=== PATIENT | female | born 1975 | race Asian ===

== ENCOUNTER 2016-12-14 21:04 | Emergency (ER) | payer OTHER ==
[~2016-12-14] VITALS: Ht 154.9 cm; Wt 59.0 kg
[~2016-12-14 21:04] MED LIST: ALBUTEROL SULF8.5 GM IH; ANECREAM30 GM TP; ATARAX,VISTARIL50 MG PO; BUSPAR15 MG PO; BUSPAR5 MG PO; BYSTOLIC5 MG PO; Buspar PO; CATAPRES0.1 MG PO; COLACE100 MG PO; CYMBALTA30 MG PO; DIAZEPAM5 MG PO; ENOXAPARIN80 MG/0.8 SC; Effexor XR PO; FIORICET WI1 CAPSULE PO; FIORICET,ESG1 TABLET PO; FLEXERIL10 MG PO; GABAPENTIN100 MG PO; Glucophage PO; HUMALOG100 UNIT/1 SC; HUMULIN N100 UNITS/ SC; HUMULIN N300 UNIT/3 SC; HYDROXYZINE HCL50 MG PO; Imitrex PO; JANUVIA100 MG PO; LABETALOL HCL200 MG PO; LEVEMIR FL100 UNITS/ SC; LEVEMIR100 UNIT/2 SC; LEXAPRO10 MG PO; LISINOPRIL-HCT1 EACH PO; LOVENOX300 MG/3 M SC; METFORMIN HCL500 MG PO; METHYLDOPA250 MG PO; MIRALAX17 GM PO; MOTRIN800 MG PO; NEURONTIN300 MG PO; OXYCODONE HCL5 MG PO; OXYCONTIN10 MG PO; OXYCONTIN20 MG PO; PRENATAL PLUS1 EAC3 PO; PREVACID15 MG PO; Proventil,Ventolin H IH; SEASONALE1 EACH PO; SYMBICORT60 INHALAT IH; TENORMIN25 MG PO; TOPAMAX50 MG PO; TORADOL10 MG PO; TRICOR145 MG PO; Tricor,Triglide PO; ZANAFLEX2 MG PO; ZANAFLEX4 M1 PO; ZOFRAN8 M1 PO
[2016-12-14 22:58] LABS: POINT-OF-CARE METER ID UU13113800
[2016-12-14 23:10] LABS: HEMATOCRIT 41.9 % (36.0-46.0); MCH 29.9 PG (29.0-34.0); MCHC 33.7 G/DL (30.0-36.0); MEAN PLAT.VOLUME 10.4 uM^3 (9.5-12.4); PLATELET COUNT 302 K/uL (156-360); RBC DIS.WIDTH-SD 38.3 % (39-53); RED BLOOD COUNT 4.71 M/uL (3.80-5.20); WHITE BLOOD COUNT 11.5 K/uL (4.1-10.2)
[2016-12-14 23:24] LABS: CHLORIDE 101 mEq/L (99-109); POTASSIUM 3.7 mEq/L (3.7-5.4); SODIUM 141 mEq/L (136-147)
[2016-12-14 23:26] LABS: GLUCOSE 206 mg/dL (70-99)
[2016-12-14 23:27] LABS: ANION GAP 21 MEQ/L (2-14)
[2016-12-14 23:30] LABS: GFR ESTIMATE (CALCULATED) > 59 mL/min/; UREA NITROGEN (BUN) 16 mg/dL (9-23)
[2016-12-14 23:38] LABS: QUANTITATIVE HCG < 4.0 MIU/ML
[2016-12-15 01:00] LABS: CARBON DIOXIDE (BICARBONATE) 23.7 MEQ/L (20-31)
[2016-12-15 01:04] LABS: ADD MIUA? YES; BILIRUBIN NEGATIVE; BLOOD NEGATIVE; COLOR YELLOW ((YELLOW)); GLUCOSE (STRIP) >=500; KETONES 80; LEUKOCYTES TRACE; NITRITE NEGATIVE; PROTEIN (STRIP) >=500; UROBILINOGEN 0.2 MG/DL (0.2-1.0)
[2016-12-15 01:09] LABS: BACTERIA 1+ /HPF; EPITHELIAL CELLS 2+ /HPF; MUCUS 3+ /LPF; RED BLOOD CELLS 0-5 /HPF (0-5); UCUL ADDED? NO; WHITE BLOOD CELLS 0-5 /HPF (0-5)
[2016-12-15 03:46] LABS: CARBON DIOXIDE (BICARBONATE) 27.4 MEQ/L (20-31)
[2016-12-15 04:11] LABS: CHLORIDE 102 mEq/L (99-109); SODIUM 138 mEq/L (136-147)
[2016-12-15 04:13] LABS: GLUCOSE 281 mg/dL (70-99)
[2016-12-15 04:14] LABS: ANION GAP 15 MEQ/L (2-14)
[2016-12-15 04:17] LABS: GFR ESTIMATE (CALCULATED) > 59 mL/min/
[2016-12-15 04:18] LABS: POTASSIUM 4.5 mEq/L (3.7-5.4); UREA NITROGEN (BUN) 12 mg/dL (9-23)
[2016-12-15 05:36] VITALS: BP 172/100
== END 2016-12-15 05:42 | disposition left against medical advice (07) ==
LOC: EME 21:04
PROVIDERS: Emergency Medicine; Physician Assistant
DX: G43.001 Migraine without aura, not intractable, with status migrainosus (principal); I10 Essential (primary) hypertension; J45.909 Unspecified asthma, uncomplicated; G89.29 Other chronic pain; E11.9 Type 2 diabetes mellitus without complications; Z79.4 Long term (current) use of insulin; Z79.891 Long term (current) use of opiate analgesic; Z86.711 Personal history of pulmonary embolism
CPT/HCPCS: 70450; 80048; 81003; 82010; 82800; 82803; 82945; 82948; 84157; 84702; 85027; 87070; 87205; 89051; 99281; 99285; J1100; J1200; J1630; J1885; J2060; J2405; J2765; J3010; J7030

== ENCOUNTER 2017-06-01 03:51 | Emergency (ER) | payer OTHER ==
[~2017-06-01] VITALS: Ht 154.9 cm; Wt 61.4 kg
[2017-06-01 05:36] VITALS: BP 182/97
== END 2017-06-01 05:48 | disposition home or self-care (01) ==
LOC: EME 03:51
DX: R51 Headache (principal); I10 Essential (primary) hypertension; R00.0 Tachycardia, unspecified; K21.9 Gastro-esophageal reflux disease without esophagitis; Z86.711 Personal history of pulmonary embolism; J45.909 Unspecified asthma, uncomplicated; Z79.891 Long term (current) use of opiate analgesic; Z79.4 Long term (current) use of insulin
CPT/HCPCS: 99281; 99285; J0780; J1200; J1885; J2270; J7030

== ENCOUNTER 2017-08-03 16:53 | Inpatient (IN) | payer OTHER ==
[~2017-08-03] VITALS: Ht 154.9 cm; Wt 62.0 kg
[~2017-08-03 16:53] MED LIST changes: +HUMULIN R100 UNITS/ SC; +VENTOLIN HFA18 GM IH; +ZANAFLEX4 MG PO
[2017-08-03 17:41] LABS: EOSINOPHIL (%) 1.9 % (0-5); EOSINOPHIL COUNT 0.1 K/uL (0-0.3); HEMATOCRIT 42.7 % (36.0-46.0); IMMATURE GRANULOCYTE (%) 0.2 % (0.0-0.7); INSTRUMENT ABS NEUTROPHIL CT 3.1 K/uL; LYMPHOCYTE COUNT 1.7 K/uL (1.0-2.8); MCH 30.4 PG (29.0-34.0); MCHC 33.7 G/DL (30.0-36.0); MCV 90.1 FL (83-99); MEAN PLAT.VOLUME 10.4 uM^3 (9.5-12.4); MONOCYTE (%) 4.4 % (3-12); MONOCYTE COUNT 0.2 K/uL (0-0.8); NEUTROPHIL (%) 59.9 % (45-76); NEUTROPHIL COUNT 3.1 K/uL (1.8-6.4); PLATELET COUNT 298 K/uL (156-360); RBC DIS.WIDTH-CV 11.7 % (11.8-14.6); RBC DIS.WIDTH-SD 38.4 % (39-53); RED BLOOD COUNT 4.74 M/uL (3.80-5.20); WHITE BLOOD COUNT 5.2 K/uL (4.1-10.2)
[2017-08-03 17:49] LABS: INTER. NORMALIZED RATIO 0.9; PROTHROMBIN TIME 10.1 SEC (10.2-12.9)
[2017-08-03 17:50] LABS: CHLORIDE 103 mEq/L (99-109); POTASSIUM 3.8 mEq/L (3.7-5.4); SODIUM 138 mEq/L (136-147)
[2017-08-03 17:52] LABS: GLUCOSE 233 mg/dL (70-99)
[2017-08-03 17:52] LABS: PTT 27.8 SEC (25-37)
[2017-08-03 17:53] LABS: ANION GAP 12 MEQ/L (2-14)
[2017-08-03 17:56] LABS: GFR ESTIMATE (CALCULATED) > 59 mL/min/; UREA NITROGEN (BUN) 9 mg/dL (9-23)
[2017-08-03 18:03] LABS: TROP-I INTERPRETATION NEGATIVE; TROPONIN-I < 0.01 ng/mL (0.0-0.30)
[2017-08-03 18:11] LABS: ADD MIUA? YES; BILIRUBIN NEGATIVE; BLOOD NEGATIVE; COLOR YELLOW ((YELLOW)); GLUCOSE (STRIP) >=500; KETONES 5; LEUKOCYTES NEGATIVE; NITRITE NEGATIVE; PROTEIN (STRIP) 100; UROBILINOGEN 0.2 MG/DL (0.2-1.0)
[2017-08-03 18:20] LABS: AMPHETAMINE NEGATIVE (500 ng/mL); BARBITURATES NEGATIVE (200 ng/mL); BENZODIAZEPINES NEGATIVE (150 ng/mL); COCAINE NEGATIVE (150 ng/mL); INTERNAL CONTROLS VALID? YES; METHADONE NEGATIVE (200 ng/mL); METHAMPHETAMINE NEGATIVE (500 ng/mL); OPIATES (MORPHINE) NEGATIVE (100 ng/mL); OXYCODONE NEGATIVE (100 ng/mL); PHENCYCLIDINE NEGATIVE (25 ng/mL); PROPOXYPHENE NEGATIVE (300 ng/mL); THC CANNABINOIDS NEGATIVE (50 ng/mL); TRICYCLIC ANTIDEPRESSANTS NEGATIVE (300 ng/mL)
[2017-08-03 18:27] LABS: BACTERIA RARE /HPF; EPITHELIAL CELLS 1+ /HPF; HYALINE CASTS 0-5 /LPF; MUCUS 1+ /LPF; RED BLOOD CELLS 0-5 /HPF (0-5); RENAL EPITHELIAL CELLS RARE /HPF; UCUL ADDED? NO; WHITE BLOOD CELLS 0-5 /HPF (0-5)
[2017-08-03] MEDS ORDERED: LEVEMIR100 UNIT/2 SC (22:12)
[2017-08-03] MEDS ORDERED: IMITREX25 MG PO (22:13)
[2017-08-03] MEDS ORDERED: LYRICA150 MG PO (22:14)
[2017-08-04] VITALS (9 sets, daily range): BP systolic 96–200; BP diastolic 53–119
[2017-08-04 00:27] LABS: TROP-I INTERPRETATION NEGATIVE; TROPONIN-I < 0.01 ng/mL (0.0-0.30)
[2017-08-04 05:25] LABS: TROP-I INTERPRETATION NEGATIVE; TROPONIN-I < 0.01 ng/mL (0.0-0.30)
[2017-08-04 05:54] LABS: ANION GAP 10 MEQ/L (2-14); CHLORIDE 102 MEQ/L (99-109); GFR ESTIMATE (CALCULATED) > 59 mL/min/; GLUCOSE 277 mg/dL (70-99); POTASSIUM 4.2 MEQ/L (3.7-5.4); SAMPLE HEMOLYSIS CHECK 0; SAMPLE ICTERIC CHECK 0; SAMPLE LIPEMIA CHECK 0; SODIUM 136 MEQ/L (136-147); UREA NITROGEN (BUN) 8 mg/dL (9-23)
[2017-08-04 06:09] LABS: MCH 31.1 PG (29.0-34.0); MCHC 33.2 G/DL (30.0-36.0); MCV 93.7 FL (83-99); MEAN PLAT.VOLUME 10.7 uM^3 (9.5-12.4); PLATELET COUNT 229 K/uL (156-360); RBC DIS.WIDTH-CV 11.9 % (11.8-14.6); WHITE BLOOD COUNT 5.7 K/uL (4.1-10.2)
[2017-08-04 06:10] LABS: RED BLOOD COUNT 3.63 M/uL (3.80-5.20)
[2017-08-04 07:31] LABS: Estimated Average Glucose 232 mg/dL (70-123); HEMOGLOBIN A1c (GLYCOHEMOGLOB) 9.7 % HGB (Below 5.7)
[2017-08-04 12:17] LABS: POINT-OF-CARE METER ID UU14162513
[2017-08-04 16:24] LABS: POINT-OF-CARE METER ID UU14314088
[2017-08-04 20:47] LABS: POINT-OF-CARE METER ID UU14174216
[2017-08-05 04:00] VITALS: BP 103/57; BP 94/42
[2017-08-05 05:44] LABS: EOSINOPHIL (%) 3.2 % (0-5); EOSINOPHIL COUNT 0.2 K/uL (0-0.3); IMMATURE GRANULOCYTE (%) 0.4 % (0.0-0.7); LYMPHOCYTE COUNT 2.1 K/uL (1.0-2.8); MCH 31.8 PG (29.0-34.0); MCHC 34.2 G/DL (30.0-36.0); MEAN PLAT.VOLUME 10.5 uM^3 (9.5-12.4); MONOCYTE (%) 4.5 % (3-12); MONOCYTE COUNT 0.3 K/uL (0-0.8); NEUTROPHIL (%) 54.2 % (45-76); PLATELET COUNT 211 K/uL (156-360); RBC DIS.WIDTH-CV 11.6 % (11.8-14.6); RBC DIS.WIDTH-SD 39.4 % (39-53); RED BLOOD COUNT 3.55 M/uL (3.80-5.20); WHITE BLOOD COUNT 5.5 K/uL (4.1-10.2)
[2017-08-05 06:13] LABS: ALKALINE PHOSPHATASE 80 IU/L (3-129); ANION GAP 9 MEQ/L (2-14); CHLORIDE 102 MEQ/L (99-109); GFR ESTIMATE (CALCULATED) > 59 mL/min/; GLUCOSE 165 mg/dL (70-99); MAGNESIUM 1.5 mg/dl (1.3-2.7); POTASSIUM 3.8 MEQ/L (3.7-5.4); SAMPLE HEMOLYSIS CHECK 0; SAMPLE ICTERIC CHECK 0; SAMPLE LIPEMIA CHECK 0; SODIUM 136 MEQ/L (136-147); TOTAL BILIRUBIN 0.8 MG/DL (0.0-1.0); UREA NITROGEN (BUN) 9 mg/dL (9-23)
[2017-08-05 07:30] VITALS: BP 102/70
[2017-08-05 08:05] LABS: POINT-OF-CARE METER ID UU14174216; POINT-OF-CARE USER ID ENVKC36
[2017-08-05 11:33] LABS: POINT-OF-CARE METER ID UU13113781; POINT-OF-CARE USER ID ENVKC36
[2017-08-05 11:45] VITALS: BP 112/75
[2017-08-05 15:00] VITALS: BP 181/102
[2017-08-05 16:46] LABS: POINT-OF-CARE METER ID UU13113698; POINT-OF-CARE USER ID ENVKC36
[2017-08-05 17:51] LABS: UR CREATININE CONCENTRATION 37.7 MG/DL
[2017-08-05 19:38] VITALS: BP 131/84
[2017-08-05 22:02] LABS: POINT-OF-CARE METER ID UU13113781
[2017-08-05 23:35] VITALS: BP 125/76
[2017-08-06] VITALS (9 sets, daily range): BP systolic 66–155; BP diastolic 40–93
[2017-08-06 04:38] LABS: POINT-OF-CARE METER ID UU13113781
[2017-08-06 05:21] LABS: EOSINOPHIL (%) 1.1 % (0-5); EOSINOPHIL COUNT 0.1 K/uL (0-0.3); HEMATOCRIT 36.4 % (36.0-46.0); IMMATURE GRANULOCYTE (%) 0.2 % (0.0-0.7); INSTRUMENT ABS NEUTROPHIL CT 3.5 K/uL; LYMPHOCYTE COUNT 1.6 K/uL (1.0-2.8); MCH 29.6 PG (29.0-34.0); MCV 89.9 FL (83-99); MEAN PLAT.VOLUME 10.5 uM^3 (9.5-12.4); MONOCYTE (%) 4.4 % (3-12); MONOCYTE COUNT 0.2 K/uL (0-0.8); NEUTROPHIL (%) 64.3 % (45-76); NEUTROPHIL COUNT 3.5 K/uL (1.8-6.4); PLATELET COUNT 218 K/uL (156-360); RBC DIS.WIDTH-CV 11.3 % (11.8-14.6); RBC DIS.WIDTH-SD 37.7 % (39-53); RED BLOOD COUNT 4.05 M/uL (3.80-5.20); WHITE BLOOD COUNT 5.4 K/uL (4.1-10.2)
[2017-08-06 05:46] LABS: ANION GAP 12 MEQ/L (2-14); CHLORIDE 102 MEQ/L (99-109); GFR ESTIMATE (CALCULATED) > 59 mL/min/; GLUCOSE 188 mg/dL (70-99); POTASSIUM 3.3 MEQ/L (3.7-5.4); SAMPLE HEMOLYSIS CHECK 0; SAMPLE ICTERIC CHECK 0; SAMPLE LIPEMIA CHECK 0; SODIUM 139 MEQ/L (136-147); UREA NITROGEN (BUN) 4 mg/dL (9-23); URIC ACID 2.9 mg/dL (3.1-9.2)
[2017-08-06 07:56] LABS: POINT-OF-CARE METER ID UU13113781
[2017-08-06 11:30] LABS: POINT-OF-CARE METER ID UU13113781
[2017-08-06 16:55] LABS: POINT-OF-CARE METER ID UU13113781
[2017-08-06 20:26] LABS: POINT-OF-CARE METER ID UU14314088
[2017-08-06 20:51] LABS: POINT-OF-CARE METER ID UU13113781
[2017-08-06 23:19] LABS: POINT-OF-CARE METER ID UU14314088
[2017-08-07 01:18] VITALS: BP 113/68
[2017-08-07 03:49] VITALS: BP 130/87
[2017-08-07 08:19] LABS: POINT-OF-CARE METER ID UU14314088
[2017-08-07 08:30] VITALS: BP 91/54
[2017-08-07 11:41] LABS: POINT-OF-CARE METER ID UU14314088
[2017-08-07 12:19] VITALS: BP 107/73
[2017-08-07 12:35] LABS: Metanephrine,Plasma <25 pg/mL (<=57)
[2017-08-07 16:39] LABS: POINT-OF-CARE METER ID UU13113781
[2017-08-07 17:48] VITALS: BP 93/62
[2017-08-07 19:16] VITALS: BP 120/81
[2017-08-07 21:13] LABS: POINT-OF-CARE METER ID UU14314088
[2017-08-08 00:27] VITALS: BP 149/93
[2017-08-08 05:02] VITALS: BP 103/76
[2017-08-08 07:51] LABS: POINT-OF-CARE METER ID UU13113781
[2017-08-08 08:18] VITALS: BP 124/69
[2017-08-08 10:21] LABS: UR CREATININE CONCENTRATION 45.2 MG/DL
[2017-08-08 11:11] VITALS: BP 121/79
[2017-08-08] MEDS ORDERED: LABETALOL HCL100 MG PO (11:18)
[2017-08-08] MEDS ORDERED: PRAZOSIN HCL1 MG PO (11:18)
[2017-08-08 11:33] LABS: ANION GAP 9 MEQ/L (2-14); CHLORIDE 98 MEQ/L (99-109); GFR ESTIMATE (CALCULATED) > 59 mL/min/; GLUCOSE 188 mg/dL (70-99); SAMPLE HEMOLYSIS CHECK 0; SAMPLE ICTERIC CHECK 0; SAMPLE LIPEMIA CHECK 0; SODIUM 138 MEQ/L (136-147); UREA NITROGEN (BUN) 11 mg/dL (9-23)
[2017-08-08 12:04] LABS: POINT-OF-CARE METER ID UU13113698; POINT-OF-CARE USER ID NUTSLF44
[2017-08-10 15:47] LABS: CATU Urine Volume 2600 mL/24 h (()); Calculated Total (E and NE) 59 mcg/24 h (26-121); Dopamine, 24 hr Urine 132 mcg/24 h (52-480); Epinephrine, 24 hr Urine 6 mcg/24 h (2-24); Norepinephrine, 24 hr Ur 53 mcg/24 h (15-100)
[2017-08-11 10:25] LABS: MNPH Specimen Volume 2600 mL (())
== END 2017-08-08 14:30 | disposition home or self-care (01) | DRG 305 ==
LOC: EME 16:53 → EDOF 22:25 → 5WEST 22:25 → ENRESERV 22:32 → 5WEST 08-04 00:12 → 4EAST 08-04 14:35 → 5WEST 08-04 14:35 → ENRESERV 08-04 14:39 → 4EAST 08-04 15:55
PROVIDERS: Emergency Medicine; Hospitalist; Internal Medicine; Internal Medicine Nephrology
DX: I16.0 Hypertensive urgency (principal); M79.7 Fibromyalgia; E78.5 Hyperlipidemia, unspecified; J45.909 Unspecified asthma, uncomplicated; E10.65 Type 1 diabetes mellitus with hyperglycemia; R07.2 Precordial pain; F41.9 Anxiety disorder, unspecified; K21.9 Gastro-esophageal reflux disease without esophagitis; G43.909 Migraine, unspecified, not intractable, without status migrainosus; R00.0 Tachycardia, unspecified; Z82.49 Family history of ischemic heart disease and other diseases of the circulatory system; Z79.899 Other long term (current) drug therapy; Z86.718 Personal history of other venous thrombosis and embolism; Z86.711 Personal history of pulmonary embolism; Z79.4 Long term (current) use of insulin; Z79.51 Long term (current) use of inhaled steroids
CPT/HCPCS: 70450; 71010; 71275; 74170; 76770; 80048; 80053; 81003; 81050; 82088 90; 82308 90; 82384 90; 82570; 82948; 83036; 83735; 83835 90; 84100; 84156; 84244 90; 84484; 84550; 85025; 85027; 85610; 85730; 93005; 93306; 94799; 99202; 99281; 99285; G0378; J1170; J1650; J1815; J1885; J2270; J2405; J7030; J7040

== ENCOUNTER 2017-11-29 23:18 | Emergency (ER) | payer OTHER ==
[~2017-11-29] VITALS: Ht 154.9 cm; Wt 61.3 kg
[~2017-11-29 23:18] MED LIST changes: +IMITREX25 MG PO; +LABETALOL HCL100 MG PO; +LYRICA150 MG PO; +PRAZOSIN HCL1 MG PO
[2017-11-29 23:50] LABS: HEMATOCRIT 41.2 % (36.0-46.0); HEMOGLOBIN 14.4 G/DL (11.9-15.5); MCH 30.4 PG (29.0-34.0); MCV 87.1 FL (83-99); PLATELET COUNT 336 K/uL (156-360); RBC DIS.WIDTH-CV 11.4 % (11.8-14.6); RBC DIS.WIDTH-SD 36.4 % (39-53); RED BLOOD COUNT 4.73 M/uL (3.80-5.20); WHITE BLOOD COUNT 13.3 K/uL (4.1-10.2)
[2017-11-30 00:17] LABS: ALBUMIN 4.8 g/dL (3.2-4.8); CHLORIDE 99 mEq/L (99-109); POTASSIUM 3.5 mEq/L (3.7-5.4); SODIUM 138 mEq/L (136-147)
[2017-11-30 00:20] LABS: GLUCOSE 199 mg/dL (70-99); TOTAL PROTEIN 8.9 g/dL (6.4-8.3)
[2017-11-30 00:22] LABS: TOTAL BILIRUBIN 0.6 mg/dL (0.0-1.0)
[2017-11-30 00:23] LABS: ALKALINE PHOSPHATASE 110 IU/L (3-129); CREATININE 0.7 mg/dL (0.6-1.3); GFR ESTIMATE (CALCULATED) > 59 mL/min/
[2017-11-30 00:24] LABS: UREA NITROGEN (BUN) 15 mg/dL (9-23)
[2017-11-30 00:25] LABS: AST (GOT) 27 IU/L (2-34)
[2017-11-30 00:26] LABS: ALT (GPT) 29 IU/L (3-49)
[2017-11-30 00:32] LABS: QUANTITATIVE HCG < 4.0 MIU/ML
[2017-11-30 01:07] LABS: DIRECT BILIRUBIN 0.2 mg/dL (0.0-0.3)
[2017-11-30 01:08] LABS: LIPASE 17 U/L (1.0-51.0)
[2017-11-30] MEDS ORDERED: ZOFRAN ODT4 MG PO (01:37)
[2017-11-30 01:40] LABS: APPEARANCE SL.HAZY ((CLEAR)); BILIRUBIN NEGATIVE; BLOOD NEGATIVE; COLOR YELLOW ((YELLOW)); GLUCOSE (STRIP) >=500; KETONES 80; LEUKOCYTES NEGATIVE; NITRITE NEGATIVE; PROTEIN (STRIP) >=500; UROBILINOGEN 0.2 MG/DL (0.2-1.0)
[2017-11-30 01:50] LABS: BACTERIA RARE /HPF; EPITHELIAL CELLS 1+ /HPF; MUCUS 3+ /LPF; RED BLOOD CELLS 0-5 /HPF (0-5); UCUL ADDED? NO; WHITE BLOOD CELLS 0-5 /HPF (0-5)
[2017-11-30 01:55] VITALS: BP 159/97
== END 2017-11-30 01:57 | disposition home or self-care (01) ==
LOC: RME 23:18 → EME 23:18 → RME 11-30 01:57
DX: R11.2 Nausea with vomiting, unspecified (principal); I10 Essential (primary) hypertension; E86.0 Dehydration; R51 Headache; E11.65 Type 2 diabetes mellitus with hyperglycemia; Z79.4 Long term (current) use of insulin; J45.909 Unspecified asthma, uncomplicated
CPT/HCPCS: 80053; 81003; 82248; 82948; 83690; 84702; 85027; 99281; 99285; J2270; J2405; J7030

== ENCOUNTER 2018-06-28 19:05 | Emergency (ER) | payer OTHER ==
[~2018-06-28] VITALS: Ht 154.9 cm; Wt 61.9 kg
[~2018-06-28 19:05] MED LIST changes: +ZOFRAN ODT4 MG PO
[2018-06-28 19:29] LABS: HEMATOCRIT 39.3 % (36.0-46.0); HEMOGLOBIN 13.4 G/DL (11.9-15.5); MCH 30.3 PG (29.0-34.0); MCHC 34.1 G/DL (30.0-36.0); MCV 88.9 FL (83-99); PLATELET COUNT 331 K/uL (156-360); RBC DIS.WIDTH-CV 11.4 % (11.8-14.6); RBC DIS.WIDTH-SD 36.7 % (39-53); RED BLOOD COUNT 4.42 M/uL (3.80-5.20); WHITE BLOOD COUNT 6.9 K/uL (4.1-10.2)
[2018-06-28 19:39] LABS: CHLORIDE 102 mEq/L (99-109); POTASSIUM 4.2 mEq/L (3.7-5.4); SODIUM 134 mEq/L (136-147)
[2018-06-28 19:40] LABS: GLUCOSE 273 mg/dL (70-99)
[2018-06-28 19:44] LABS: CREATININE 0.8 mg/dL (0.6-1.3); GFR ESTIMATE (CALCULATED) > 59 mL/min/
[2018-06-28 19:45] LABS: UREA NITROGEN (BUN) 13 mg/dL (9-23)
[2018-06-28 19:51] LABS: TROP-I INTERPRETATION NEGATIVE; TROPONIN-I < 0.01 ng/mL (0.0-0.30)
[2018-06-28 22:42] LABS: TROP-I INTERPRETATION NEGATIVE; TROPONIN-I < 0.01 ng/mL (0.0-0.30)
[2018-06-29] MEDS ORDERED: MINIPRESS2 MG PO (00:14)
[2018-06-29] MEDS ORDERED: VITAMIN D31000 UNIT PO (00:15)
[2018-06-29] MEDS ORDERED: LABETALOL HCL100 MG PO (00:15)
[2018-06-29 01:00] VITALS: BP 142/99
== END 2018-06-29 01:34 | disposition left against medical advice (07) ==
LOC: EME 19:05
PROVIDERS: Physician Assistant
DX: R07.9 Chest pain, unspecified (principal); E11.65 Type 2 diabetes mellitus with hyperglycemia; Z79.4 Long term (current) use of insulin; J98.11 Atelectasis; I10 Essential (primary) hypertension; J45.909 Unspecified asthma, uncomplicated; Z86.711 Personal history of pulmonary embolism; Z87.891 Personal history of nicotine dependence; Z53.20 Procedure and treatment not carried out because of patient's decision for unspecified reasons
CPT/HCPCS: 71046; 71275; 80048; 84484; 85027; 85379; 93005; 99281; 99285; J2270; J2405; J7030